=== PATIENT | female | born 1950 | race Caucasian/White ===

== ENCOUNTER 2019-10-15 06:01 | Inpatient (IN) | payer MEDICARE, SELFPAY ==
[2019-10-15] VITALS (16 sets, daily range): BP systolic 79–140; BP diastolic 44–80; PULSE 76–97; RESP 10–16; TEMP 35.8–37.3; O2SAT 92–97; BMI 30.9
--- NOTE | 2019-10-15 | DI.RAD.S_ITS ---
PROCEDURE: XR LUMBAR SPINE 2-3V INDICATIONS: TLIF L2-L5 TECHNIQUE: 4 views of the lumbar spine were acquired. COMPARISON: None. FINDINGS: There is discectomy and posterior fusion at L2-L5. IMPRESSION: Discectomy and posterior fusion at L2-L5. Dictated by: Peace Ferrera M.D. on 10/15/2019 at 16:27 Approved by: Peace Ferrera M.D. on 10/15/2019 at 16:29
--- NOTE | 2019-10-15 07:16 | SUR.PREOP ---
PAIN STIMULATOR - PT STATES SHE TURNED IT OFF THE AM.
--- NOTE | 2019-10-15 07:18 | PM.PREOP ---
Pre-operative Note Interval Note History & Physical reviewed/Exam performed by Physician: Yes Changes to H&P: No
[2019-10-15] MEDS: GABAPENTIN 300 MG CAPSULE PO ×2 (07:23→21:41)
[2019-10-15] MEDS: CELECOXIB 200 MG CAPSULE 400 MG PO ×2 (07:24→16:15)
[2019-10-15] MEDS: SCOPOLAMINE 1 PATCH TOP (07:25)
[2019-10-15] MEDS: ACETAMINOPHEN 325 MG TABLET 975 MG PO (07:25)
[2019-10-15] MEDS: LACTATED RINGERS 1,000 ML 42 ML IV ×3 (07:27→13:03)
[2019-10-15] MEDS: CEFAZOLIN 2 GM/100 ML FROZ.PIGGY IV ×3 (07:55→23:36)
--- NOTE | 2019-10-15 08:47 | SUR.OPER ---
Right lateral on padded OR table. Head on pillow, gel axillary roll, pillow to support left arm. Legs flexed, pillows between legs, gel pad under down leg and ankle. Multiple passes of 3 inch cloth tape across shoulder, hip, upper and lower legs to secure patient on OR table.
--- NOTE | 2019-10-15 08:48 | SUR.OPER ---
Prone on spine table, head in foam head support, padded chest and pelvic supports, gel pad at knees, lower legs supported by pillows; nipples, genitalia and toes free of pressure, arms secured on foam padded arm boards at <90 degrees abduction. Tape over blanket at thigh secured to table.
[2019-10-15] MEDS: VANCOMYCIN 1,000 MG VIAL 1000 MG TOP (08:55)
[2019-10-15] MEDS: THROMBIN (RECOMBINANT) 5,000 UNIT VIAL 5000 UNIT TOP (08:55)
[2019-10-15] MEDS: SODIUM CHLORIDE 0.9% 1,000 ML, GENTAMICIN 80 MG IRR (08:56)
[2019-10-15] MEDS: BUPIVACAINE 0.5% (PF) 4 ML, MORPHINE-PF 4 MG, BUTORPHANOL 1 MG, fentaNYL 100 MCG INJ (08:57)
--- NOTE | 2019-10-15 13:57 | PM.OP.1 ---
Operative Date/Time/Diagnoses Date of procedure: 10/15/19 Time of procedure: 13:58 Pre-op diagnosis: Lumbar stenosis with radiculopathy Lumbar spondylolisthesis History of lumbar fusion Post-op diagnosis: same Procedure & Clinicians Procedure: L2-3, L3-4 anterior fusion with cages L2-3, L3-4 posterior fusion L2, L3, L4 screws Removal of segmental lumbar screws at L4, L5, S1 Iliac crest bone graft aspirate L2-3 laminectomy L3-4 revision laminectomy Use of microscope Placement of epidural catheter Same procedure as scheduled: Yes Indications: [age] year old female with intractable pain from stenosis. They had failed conservative management and requested operative intervention. Risks and benefits of surgery were discussed and appropriate consents were obtained. Marketing Analytics Lead: Sharan Kimble Anesthesia Type: General Operative Notes Findings: None Closure Type: primary Specimen(s): none sent Prosthetic devices, grafts, tissues, transplants, or devices: NuVasive XLIF cages, MAS Reline screws Applied: catheter Estimated Blood Loss (mL): 250 Blood products transfused: none Procedure in detail: Patient was brought to the operating room and intubated on the table. Time-out was performed. They were then rolled over to the lateral decubitus position with the [id number]. The table was bent and they were taped down in the correct position. X-rays were taken to confirm a true AP and lateral. Preoperative antibiotics were given. The left flank was prepped and draped in standard sterile fashion. Using fluoroscopy, a 3 cm incision was made above the iliac crest. We bluntly dissected down with Metzenbaum scissors and split the 3 abdominal muscle layers. We dissected out the retroperitoneal space and using finger guidance, brought our 1st dilator down to the psoas muscle. Using neuromonitoring and fluoroscopy, we placed it through the psoas onto the L3-4 disc space in an anterior position and gradually pulled the dilator posteriorly along the disc space. We placed our guidewire and measured our depth for the retractor. We then dilated with the next 2 dilators and then placed our retractor over the dilators. Position was confirmed with fluoroscopy and the retractor was locked down to the bar. We opened up the retractor and checked with neuro monitoring. We then placed the braulio and again checked with neuro monitoring. The retractor was opened further and the ALL retractor was placed. An annulotomy was performed. We then performed a complete diskectomy with ring curette, pituitary, box osteotome. A Martinez was advanced across the disc space under fluoroscopy to release the lateral annulus on the opposite side. We then used sequentially larger trials and confirmed under fluoroscopy. This was tight to get into and I elected to use a titanium cage for extra structural support. The XLIF cage was packed with Osteocel bone graft and impacted into the L3-4 disc space with fluoroscopy for the anterior fusion at this level. The wound was irrigated. The retractor was closed down. The braulio was removed. We carefully removed the retractor with direct visualization to make sure there was no neurovascular or abdominal injury. We then went up to L2-3. Again we used dilators, placed a retractor, performed a complete diskectomy with lateral release, trialed and placed another cage with bone graft for the anterior fusion at L2-3. The retractors removed with direct visualization. Final x-rays were taken. The muscle fascia was closed, superficial tissue was closed. The skin was closed. Sterile dressing was placed. The patient was then rolled over on the well-padded prone position on the Mook table. Using fluoroscopy for localization, bilateral 12 cm incisions were made centered over her pedicles and previous lumbar screws. We used a Bovie to come down to and split the lumbodorsal fascia and then down to expose the screws bilaterally. The soft tissue was cleared off. We had to use a bur to remove a lot of bony overgrowth until everything was exposed. And the set screws were removed. We were unable to remove the crosslink by just lifting it. We had to dissect to the midline from both sides, release the screw and then separate the pieces before we could finally removed the crosslink. The rods were removed and then the screws removed. Due to the amount of bony overgrowth as well as the difficulty with the crosslink, this added approximately 1.5 hours to our surgery time. We placed a guidewire in the L4 screw hole on the left. We then used a Jamshidi needle to cannulate the pedicles of L2 and L3 on the left using neural monitoring and fluoroscopy. These were changed guidewires. We then tapped over the guidewires and placed NuVasive Reline MAS screws at these 3 levels. We upsized and used a 7.5 mm screw at L4 in the old hole. We then opened up our retractor blades and cleared off the soft tissue over the transverse processes and then medially over the facet and lamina. There was tremendous scar medially from her previous surgery in this had extensive dissection to try to isolate our clean laminar edge. Once this was done, we then brought in the microscope. A revision laminectomy was performed at L3-4 with a bur and Kerrison rongeurs. There was so much scar tissue coming up from the previous laminectomy at L4-5 that part of this must have been undermined. The dura was densely adherent to everything requiring extra dissection to meticulously remove separate the scar tissue from the dura and this took as much time and complexity as a revision laminectomy. We carefully depressed the dura to reach to the opposite side and decompress the entire central canal. We cleared out the neural foramen. In the end the ball probe could be placed cephalad and caudally across to the opposite side in the foramen and everything was opened. We then moved the retractor blades up to L2-3. Again we used a bur and Kerrisons to perform a laminectomy at L2-3. We carefully depressed the dura and reach the opposite side for the central decompression and then cleared out the neural foramen. The wound was copiously irrigated. The screw heads were placed and the danielle was placed and locked down. A small stab incision was made over the PSIS and a Jamshidi needle was placed into the iliac crest and several mL of bone marrow was aspirated. This was mixed with our locally harvested bone graft as well as the remaining Osteocel and placed in the posterolateral gutter for fusion at L2-3 and L3-4. An epidural catheter was primed with 4mL of 0.5% bupivacaine, 100 mcg fentanyl, 4 mg Duramorph, 1 mg Stadol. The dura was depressed under the cephalad lamina with a ball probe and the epidural catheter was gently advanced 6 cm cephalad. The fascia was then closed. The epidural was then injected without resistance. The catheter was pulled and we closed more over the fascia. We then went over to the right side. Again percutaneously placed Jamshidi needles down the right pedicles of L2 and L3 with fluoroscopy and neural monitoring. We switched used the guidewires and also placed a guidewire down her previous L4 screw hole. We tapped and then placed the appropriate screws with upsizing of the L4 screw. A danielle was placed and the set screws were locked down. Wound was irrigated. Final x-rays were taken. Vancomycin powder was placed in the wound. The superficial and skin were closed. Sterile dressing was placed. The patient was then rolled over, extubated, brought to the recovery room with no complications. Complications: none Post-operative Condition: stable Disposition: PACU Plan for aftercare: Inpatient. Up with PT.
[2019-10-15] MEDS: fentaNYL 100 MCG/2 ML INJ IV ×4 (14:50→15:05)
[2019-10-15] MEDS: VENLAFAXINE ER 75 MG CAP PO ×2 (16:15→21:41)
[2019-10-15] MEDS: LACTATED RINGERS 1,000 ML 125 ML IV (16:15)
[2019-10-15] MEDS: CELECOXIB 200 MG CAPSULE PO (21:41)
[2019-10-15] MEDS: SENNOSIDES 8.6 MG TABLET 17.2 MG PO (21:41)
[2019-10-15] MEDS: ATORVASTATIN 20 MG TABLET PO (21:41)
[2019-10-15] MEDS: NORTRIPTYLINE HCL 25 MG CAPSULE 100 MG PO (21:41)
[2019-10-15] MEDS: DOCUSATE 100 MG CAPSULE PO (21:41)
[2019-10-15] MEDS: OXYCODONE IR 5 MG TABLET PO (23:43)
[2019-10-16] MEDS: LACTATED RINGERS 1,000 ML 125 ML IV ×2 (01:25→09:03)
[2019-10-16 05:59] VITALS: BP 123/59; PULSE 83; RESP 16; TEMP 36.7; O2SAT 91
[2019-10-16 06:39] LABS: Hematocrit 28.6 % (36-46); Hemoglobin 9.7 g/dL (12.0-16.0)
--- NOTE | 2019-10-16 06:46 | PM.PNPO.1 ---
Subjective Subjective Date Patient Seen: 10/16/19 Time Patient Seen: 06:46 Interval history: she's doing well. pain 6/10, no leg pain Exam Vital Signs (past 8 hours): - 10/15/19 23:44 10/16/19 05:59 Temperature 97.5 F L 98.0 F Pulse Rate 86 83 Respiratory Rate 16 16 Blood Pressure 107/60 123/59 L Pulse Oximetry 93 91 Oxygen Delivery Method High Flow Nasal Cannula Oxygen Flow Rate 2 Const Orientation: alert and oriented x3 Back/Spine/Pelvis Other: mild dry drainage. 5/5 motor BLE Objective Labs Result Diagrams: 10/16/19 06:20 Labs: Laboratory Results - last 24 hr 10/16/19 06:20 Hgb 9.7 L Hct 28.6 L Assessment & Plan Post-op Postoperative Procedures: Procedures Operation Date: 10/15/19 07:45 Actual Procedures Side Surgeon p L23, L34 anterior & posterior (XLIF) instrumentated fusion w/ bone graft & laminectomies, removal old L4-S1 screws Edmund Kelsey MD She's doing well. Mobilize with PT Quality VTE Deep Vein Thrombosis/Pulmonary Embolism Present on Admission: No
[2019-10-16 07:36] VITALS: BP 100/57; PULSE 75; RESP 18; TEMP 36.9; O2SAT 92
[2019-10-16] MEDS: CELECOXIB 200 MG CAPSULE PO ×2 (07:47→20:56)
[2019-10-16] MEDS: VENLAFAXINE ER 75 MG CAP PO (07:48)
[2019-10-16] MEDS: DOCUSATE 100 MG CAPSULE PO ×2 (07:48→20:56)
[2019-10-16] MEDS: OXYCODONE IR 10 MG TABLET PO ×6 (07:49→23:49)
[2019-10-16] MEDS: ACETAMINOPHEN 325 MG TABLET 650 MG PO ×2 (07:49→15:03)
[2019-10-16] MEDS: LEVOTHYROXINE 150 MCG TABLET PO (07:49)
--- NOTE | 2019-10-16 10:22 | PT.IIE ---
Current Diagnoses Spondylolisthesis, lumbar region (10/15/19) Spinal stenosis, lumbar region with neurogenic claudication (10/15/19) Arthrodesis status (10/15/19) Surgery Performed Operation Date: 10/15/19 07:45 Actual Procedures p L23, L34 anterior & posterior (XLIF) instrumentated fusion w/ bone graft & laminectomies, removal old L4-S1 screws - Edmund Kelsey MD Surgical History (Last Updated 07/31/19 @ 10:29 by Laura Meyers RN) H/O: hysterectomy (Acute) History of arthroplasty of left knee (Acute) History of arthroplasty of right knee (Acute 06/12/16) History of arthroscopy of both knees (Acute) History of bladder suspension procedure (Acute) History of lumbar spinal fusion (Acute) History of surgery (Acute) Hx of hand surgery (Acute) Medical History (Last Updated 07/31/19 @ 10:29 by Laura Meyers RN) Anxiety (Acute) Depression (Acute) Hypothyroid (Acute) Physical Therapy Inpatient Evaluation/Re-Eval M1 PT/OT-IP Prior Functional Status Start: 10/16/19 12:42 Freq: NEEDED Status: Active Protocol: Document 10/16/19 10:22 AB (Rec: 10/16/19 12:58 AB [id number]) Medical Review Prior Functional Status Medical History Reviewed Yes Communication able to make needs known Mobility and Gait pt stated that she is independent with all mobilities and ambulation without AD but occasionally uses a SPC depending on stability/level of pain Social History Household Members spouse Living Arrangements House Number of Floors (Floors) Two Floors Number of Stairs To Enter/Railing? has 3 steps to enter with B rails pt will stay on main level of ehouse Home Environment Standard Height Toilet,Tub/ Shower Home Equipment Raised Toilet Seat w/Armrests, Shower Seat without Backrest, Hand Held Shower,Grab Bars Near Toilet,Grab Bars In Shower Additional Social History Comment stated that she has friends who will also be able to assist her when needed. stated that she has access to a 4WW and a FWW but does not have them at this time M2 PT-IP Current Condition Start: 10/16/19 12:42 Freq: NEEDED Status: Active Protocol: Document 10/16/19 10:22 AB (Rec: 10/16/19 12:58 AB [id number]) Physical Therapy Current Condition Current Condition Evaluation Date 10/16/19 Treatment Diagnosis L2-4 ant./post fusion/lami; difficulty in walking Onset Date 10/15/2019 Precautions Lumbar Precautions Log Roll,No Twisting,Limit Bending,Lifting Restriction of 10 lbs,Gait Belt above Incisional Area M3 PT-IP Subjective Start: 10/16/19 12:42 Freq: NEEDED Status: Active Protocol: Document 10/16/19 10:22 AB (Rec: 10/16/19 12:58 AB [id number]) Subjective Physical Therapy Visit Type Type Initial Evaluation Visit Start Time 10:22 Visit Stop Time 10:54 Total Visit Minutes 32 Number of COMMODITIES REQUIREMENTS ANALYST Visits 0 Physical Therapy Visit Comments Patient Comments pt agreeable to do PT Therapy Pain Assessment Pain When Pain Assessed At Rest Pain Present Pain Present Pain Reported Location Bilateral Back Intensity 5 Scale Used increases to 6/10 with mobility Pain Management Techniques Re-positioning,Timing of Activity with Medications M4 PT-IP Mobility and Gait Start: 10/16/19 12:42 Freq: NEEDED Status: Active Protocol: Document 10/16/19 10:22 AB (Rec: 10/16/19 12:58 [id number]) PT-Bed Mobility Assessment Rolling Type of Rolling Log Rolling Level of Assist Standby Assistance Supine to Sit Supine to Sit Standby Assistance Scooting Scooting to Edge of Bed Contact Guard Assistance PT-Transfer Assessment Sit to and From Stand Sit to and from Stand Minimal Assistance,1 Person Assistance,Use of Upper Extremities Equipment Transfer Assistive Device Gait Belt,Front Wheeled Walker Orthotic/Prosthetic Devices or Brace: No Transfers Transfer Destination Chair Transfer Technique ambulated using FWW Transfer Ability Level of Assist Minimal Assistance,1 Person Assistance,Use of Upper Extremities Comments Mobility Comments BP supine: 97/53 pt completed log roll supine to sit SBA and cues. pt was able to sit on EOB CGA. BP in sittin/ 57. completed sit to stand from the EOB min A and cues. ambulated ~ 12 ft using FWW. pt sat on chair. completed sit to stand from chair min A for repositioning. positioned pt on chair. BP: 110/57 Left pt with OT. Gait Assessment Gait Gait Assistance Required: Minimum Assistance,1 Person Assist Distance (Feet) 12 Able to Maintain Weight Bearing Status Yes During Gait Assistive Devices Assistive Device Gait Belt,Front Wheeled Walker Orthotic/Prosthetic Devices or Brace: No Gait Deviations General Gait Pattern Antalgic,Decreased Stride Length,Decreased Feet Clearance Factors Limiting Gait Function Factors Limiting Gait Function Decreased Activity Tolerance, Decreased Strength,Limited Range of Motion,Pain,Poor Balance Comments Gait Comments pls refer to mobility section for details PT-Balance Assessment Sitting Balance and Reactions Static Sitting Balance Ability Good Dynamic Sitting Balance Ability Good Standing Balance and Reactions Static Standing Balance Ability Fair Dynamic Standing Balance Ability Fair Device Used FWW M5 PT-IP Objective Assessments Start: 10/16/19 12:42 Freq: NEEDED Status: Active Protocol: Document 10/16/19 10:22 AB (Rec: 10/16/19 12:58 [id number]) Orientation Orientation/Cognition Level of Alertness Alert Orientation Name,Age,Place,Situation Language Function Ability No Deficits Noted Safety Awareness Understands Safety Issues Gross Range of Motion Lower Extremity ROM Assessment Within Functional Limits Strength Comments Strength Comments LLE: 4-/5 RLE: 3+/5 Coordination Assessment Gross Coordination Gross Coordination WNL Sensation Assessment Sensation Gross Sensation Right LE Impaired Light Touch Impaired Sensation Description Numbness,Tingling Comments Sensation Comments c/o R inner thigh to big toes numbness/tingling and decrease sensation Muscle Tone Muscle Tone WNL Yes M6 PT-IP Treatment Start: 10/16/19 12:42 Freq: NEEDED Status: Active Protocol: Document 10/16/19 10:22 AB (Rec: 10/16/19 12:58 [id number]) Physical Therapy Treatment Education Education Provided Precautions,Weight Bearing Status,Post-Op Packet,Safety M7 PT-IP Assessment and Plan Start: 10/16/19 12:42 Freq: NEEDED Status: Active Protocol: Document 10/16/19 10:22 AB (Rec: 10/16/19 12:58 [id number]) PT Summary Assessment and Plan Potential Rehabilitation Potential Good Status of Condition at Evaluation Stable Summary Impairments Pain,ROM,Strength,Balance, Coordination,Sensation,Tone, Cognition,Bed Mobility, Transfers,Gait,Activity Tolerance Assessment Summary pt requiring min A with mobility and plans to go home with spouse to assist her. pt has 3 steps to enter with B rails and stair climbing training needs to be completed prior to d/c. will conduct caregiver training when appropriate. Goals Bed Mobility Goal Independent Transfer Goal Independent,Front Wheeled Walker Gait Goal Independent,Front Wheel Walker Gait Distance 150 Other Goals up/down 3 steps using bilateral rails SBA Days to Meet Goals 3 Frequency of Treatment Frequency Of Treatment Twice a Day Treatment Plan Physical Therapy Treatment Plan Bed Mobility Training,Transfer Training,Gait Training, Therapeutic Exercise,Balance Retraining,Post Op Education, Discharge Planning,Hot or Cold Pack,Neuromuscular Re-ed, Coordination Retraining,Manual Therapy Other Recommendations and Next Treatment ambulation, stair climbing, Focus caregiver training Recommendations To Nursing Amount of Assist Needed 1 Person Assist Discharge Recommendations PT Discharge Recommendations Home with Assistance Equipment Needed for Home Before FWW Discharge
--- NOTE | 2019-10-16 11:22 | OT.IP.EVAL ---
Current Diagnoses Spondylolisthesis, lumbar region (10/15/19) Spinal stenosis, lumbar region with neurogenic claudication (10/15/19) Arthrodesis status (10/15/19) Surgery Performed Operation Date: 10/15/19 07:45 Actual Procedures p L23, L34 anterior & posterior (XLIF) instrumentated fusion w/ bone graft & laminectomies, removal old L4-S1 screws - Edmund Kelsey MD Past Medical History (Last Updated 07/31/19 @ 10:29 by Laura Meyers RN) Anxiety (Acute) Depression (Acute) Hypothyroid (Acute) Surgical History (Last Updated 07/31/19 @ 10:29 by Laura Meyers RN) H/O: hysterectomy (Acute) History of arthroplasty of left knee (Acute) History of arthroplasty of right knee (Acute 06/12/16) History of arthroscopy of both knees (Acute) History of bladder suspension procedure (Acute) History of lumbar spinal fusion (Acute) History of surgery (Acute) Hx of hand surgery (Acute) Occupational Therapy Inpatient Evaluation/Re-Eval M1 PT/OT-IP Prior Functional Status Start: 10/16/19 12:42 Freq: NEEDED Status: Active Protocol: Document 10/16/19 13:13 CGR (Rec: 10/16/19 13:32 CGR [id number]) Medical Review Prior Functional Status Medical History Reviewed Yes Communication able to make needs known Mobility and Gait pt stated that she is independent with all mobilities and ambulation without AD but occasionally uses a SPC depending on stability/level of pain Activities of Daily Living and IADL's Pt was IND in all ADLs Prior Functional Level (Other details) Pt states that her was recently discharged from the hospital after a 14 day admission and may not be able to assist much. Social History Household Members spouse Living Arrangements House Number of Floors (Floors) Two Floors Number of Stairs To Enter/Railing? has 3 steps to enter with B rails pt will stay on main level of the house Home Environment Standard Height Toilet,Tub/ Shower Home Equipment Raised Toilet Seat w/Armrests, Shower Seat without Backrest, Hand Held Shower,Grab Bars Near Toilet,Grab Bars In Shower Employment Status Retired Additional Social History Comment stated that she has friends who will also be able to assist her when needed. stated that she has access to a 4WW and a FWW but does not have them at this time. Pt is retired/on disability after having this fall at work with years of following back pain. M2 OT-IP Current Condition Start: 10/16/19 13:12 Freq: Status: Active Protocol: Document 10/16/19 13:13 CGR (Rec: 10/16/19 13:32 CGR [id number]) Occupational Therapy Current Condition Current Condition Evaluation Date 10/16/19 Treatment Diagnosis L2-4 XLIF, bone graft, and lami Diagnosis Onset Date 10/15/19 Post Operative Precautions Lumbar Precautions Log Roll,No Twisting,Limit Bending,Lifting Restriction of 10 lbs,Gait Belt above Incisional Area M3 OT- IP Subjective and Pain Start: 10/16/19 13:12 Freq: Status: Active Protocol: Document 10/16/19 13:13 CGR (Rec: 10/16/19 13:32 CGR [id number]) OT- Subjective Occupational Therapy Visit Type Type Initial Evaluation Visit Start Time 10:38 Visit Stop Time 11:22 Total Visit Minutes 44 Notes Partial co-treat with P.T. OT Pain Assessment Pain When Pain Assessed At Rest Pain Present Pain Present Pain Reported Location Bilateral Back Intensity 5 Scale Used Numeric (1 - 10) Management Techniques Modification of Treatment, Timing of Activity with Medications M4 OT- IP ADL's Start: 10/16/19 13:12 Freq: Status: Active Protocol: Document 10/16/19 13:13 CGR (Rec: 10/16/19 13:32 CGR [id number]) OT [id number] Comments OT Self-Feeding Comments Not meal time OT ADL-Grooming General Evaluation Grooming Ability Standby Assistance Areas Needing Assistance Combing/Brushing Hair,Face Washing Comments OT Grooming Comments seated in chair OT ADL-Oral Care General Eval Oral Care Ability Standby Assistance Areas of Assistance Brushing Teeth Comments Oral Care Comments seated in chair OT ADL-Dressing General Eval Lower Body Dressing Ability Contact Guard Assistance Areas Needing Assistance Retrieving/Set-up of Clothing, Socks Assistive Devices Dressing Assistive Devices Radio Interference Expert,Sock Aid Comments OT Dressing Comments Pt educated on use of hip kit for LB dressing with socks, underwear and pants. Pt practices sucessfully and was provided a hip kit minus the roller billet mill as she states she has a roller billet mill at home. OT ADL-Toileting Comments OT Toileting Comments Not performed, pt with barr and declined other needs of the toilet. OT ADL-Bathing Comments OT Bathing Comments not performed in this session. M5 OT- IP IADL's Start: 10/16/19 13:12 Freq: Status: Active Protocol: Document 10/16/19 13:13 CGR (Rec: 10/16/19 13:32 CGR [id number]) OT-Instrumental Activities of Daily Living Deficits IADL Deficits Identified No Deficits Home Safety Awareness Awareness of Need for Assistance at Home Good Awareness Ability to Problem Solve Emergency Able to Problem Solve Situations Medication Management Medication Management No Deficits Identified Money Management Money Management No Deficits Identified Meal Preparation Meal Preparation No Deficits Identified French Instructor French Instructor No Deficits Identified M6 OT- IP Functional Cognition Start: 10/16/19 13:12 Freq: Status: Active Protocol: Document 10/16/19 13:13 CGR (Rec: 10/16/19 13:32 CGR [id number]) Cognitive Factors Limiting Selfcare Function Cognitive Ability Level of Alertness Alert Patient Orientation Name,Age,Birthday,Month,Date, Year,Day of Week,Place, Situation Attention Span Ability Capable of Focused Attention, Capable of Sustained Attention Ability to Follow Commands Able to Follow Multi-Step Commands Memory Description No Deficits Noted Safety Awareness No Deficits Noted Problem Solving Ability No deficits Noted OT- Vision and Hearing OT- Hearing Assessment OT- Hearing Assessment WFL OT- Vision Assessment Visual Acuity WFL Visual Attentiveness WFL Occular Pursuits WFL Visual Convergence WFL Visual [place] WFL Diplopia Absent M7 OT- IP Mobility and Balance Start: 10/16/19 13:12 Freq: Status: Active Protocol: Document 10/16/19 13:13 CGR (Rec: 10/16/19 13:32 CGR [id number]) OT- Bed Mobility Assessment Rolling Type of Rolling Roll to Right Level of Assistance Standby Assistance Supine to Sit Supine to Sit Assist Standby Assistance Scooting Scooting to Edge of Bed Standby Assistance OT-Transfer Assessment Sit to and From Stand Sit to and from Stand Minimal Assistance Transfers Transfer Ability Minimal Assistance Technique Transfer Destination Bed,Chair Transfer Technique Stand Step Pivot Devices Transfer Assistive Devices Gait Belt,Front Wheeled Walker OT- Gait Assessment Gait Gait Assistance Required: Minimum Assistance Assistive Devices Assistive Device Gait Belt,Front Wheeled Walker Comments Gait Ability Comments Pt ambulated around the bed to the chair. OT- Balance Assessment Sitting Balance and Reactions Static Sitting Balance Ability Good Dynamic Sitting Balance Ability Fair M8 OT- IP Objective Assessments Start: 10/16/19 13:12 Freq: Status: Active Protocol: Document 10/16/19 13:13 CGR (Rec: 10/16/19 13:32 CGR [id number]) OT Gross Range of Motion Upper Extremity Range of Motion Assessment Within Functional Limits OT Strength Upper Extremity Strength Assessment Within Functional Limits OT- Coordination Assessment Upper Extremity Finger to Nose Test Within Functional Limits Finger Tapping Test Within Functional Limits OT-Muscle Tone Assessment Muscle Tone WNL Yes OT Sensation Assessment Edema Edema Absent M9 OT- IP Assessment and Plan Start: 10/16/19 13:12 Freq: Status: Active Protocol: Document 10/16/19 13:13 CGR (Rec: 10/16/19 13:32 CGR [id number]) OT Summary Assessment and Plan Potential Rehabilitation Potential Excellent Analytic Complexity at Evaluation Low Summary OT Impairments Pain,Functional Mobility, Dressing,Toileting,Bathing, Toilet Transfers,Shower Transfers Progress Towards Goals Progressing Toward Goals Assessment Summary Pt presents as a low complexity evaluation s/p lumbar sx. Pt is doing well but will benefit from continued OT services. Recommend d/c home with family and friend support. Pt is likely to be MOD I prior to discharge. Pt will need a walker for home use. Goals Grooming Goal Independent Dressing Goal Independent,Radio Interference Expert,Sock Aid Toileting Goal Independent Bathing Goal Independent Toilet Transfer Goal Independent Shower Transfer Goal Independent Days to Meet Goals 5 Frequency of Treatment Frequency Of Treatment Once a Day Treatment Plan OT Treatment Plan ADL Training,Functional Mobility,Patient/Family Education,Discharge Planning Other Treatment Recommendations and Next Shower and practice LB Treatment Focus dressing. Discharge Recommendations OT Discharge Recommendations Home Home Equipment Needs walker
[2019-10-16 11:54] VITALS: BP 106/57; PULSE 74; RESP 18; TEMP 36.6; O2SAT 96
--- NOTE | 2019-10-16 15:31 | CM.DANOTE ---
Addendum entered by Marija Murillo LPN 10/16/19 15:45: Met with pt as planned. Introduced self and role. Pt's spouse and a friend who can check on her are also in room. Pt confirms that her is not well enough for other than supportive assist. She is hopeful that she can be here until Saturday so that she is stable enough to manage at home. She is aware that this will be at the discretion of the orthopedic team and she plans to discuss this with the rounding provider tomorrow. She does have a brother who can check on her also if need be. Pt confirms she will need a FWW at d/c and if the option is available to get it here and have it billed to her insurance she would like that. P: home when stable for same. DCP team will be following. Original Note: Discharge Planning/Care Management DCP: assessment: case received, EMR reviewed. Discussed in Team Rounds. Pt is a 68 year old female who admitted here yesterday for a planned spinal surgery: surgeon: Dr. Kelsey. Payer [facility] Admission status: INPT: per [facility] TANYA Juarez. OT and PT saw pt for first time today and thus far are recommending home with assistance and need for a FWW. P: meet with pt to continue this assessment process. It is noted in the documenation that pt's spouse had a recent hospitalization and thus his support will be limited. CM Discharge Assessment Start: 10/16/19 15:30 Freq: Status: Active Protocol: Document 10/16/19 15:30 ITV (Rec: 10/16/19 15:31 ITV [id number]) Discharge Planning Assessment Advance Directives? Yes: Living Will History Provided By Patient,Medical Record Prior Living Arrangements House Household Members spouse Is patient alert and oriented? Yes Whiteboard Updated in Patient Room with Yes name and ext. # of Cnc Machine Programmer Review Status In Process
[2019-10-16 15:40] VITALS: BP 101/55; PULSE 86; RESP 18; TEMP 36.6; O2SAT 92
--- NOTE | 2019-10-16 15:48 | PT.IPTN ---
Current Diagnoses Spondylolisthesis, lumbar region (10/15/19) Spinal stenosis, lumbar region with neurogenic claudication (10/15/19) Arthrodesis status (10/15/19) Surgery Performed Operation Date: 10/15/19 07:45 Actual Procedures p L23, L34 anterior & posterior (XLIF) instrumentated fusion w/ bone graft & laminectomies, removal old L4-S1 screws - Edmund Kelsey MD Physical Therapy Treatment Note M2 PT-IP Current Condition Start: 10/16/19 12:42 Freq: NEEDED Status: Active Protocol: Document 10/16/19 10:22 AB (Rec: 10/16/19 12:58 AB [id number]) Physical Therapy Current Condition Current Condition Evaluation Date 10/16/19 Treatment Diagnosis L2-4 ant./post fusion/lami; difficulty in walking Onset Date 10/15/2019 Precautions Lumbar Precautions Log Roll,No Twisting,Limit Bending,Lifting Restriction of 10 lbs,Gait Belt above Incisional Area M3 PT-IP Subjective Start: 10/16/19 12:42 Freq: NEEDED Status: Active Protocol: Document 10/16/19 15:48 AB (Rec: 10/16/19 17:09 AB [id number]) Subjective Physical Therapy Visit Type Type Treatment Note Visit Start Time 15:48 Visit Stop Time 16:09 Total Visit Minutes 21 Number of OPTOMECHANICAL TECHNICIAN Visits 0 Physical Therapy Visit Comments Patient Comments pt agreeable to do PT Therapy Pain Assessment Pain When Pain Assessed At Rest Pain Present Pain Present Pain Reported Location Bilateral Back Intensity 7 Scale Used Numeric (1 - 10) Pain Management Techniques Apply Cold,Re-positioning, Timing of Activity with Medications M4 PT-IP Mobility and Gait Start: 10/16/19 12:42 Freq: NEEDED Status: Active Protocol: Document 10/16/19 15:48 AB (Rec: 10/16/19 17:09 AB [id number]) PT-Bed Mobility Assessment Rolling Type of Rolling Log Rolling Supine to Sit Supine to Sit Standby Assistance Scooting Scooting to Edge of Bed Standby Assistance PT-Transfer Assessment Sit to and From Stand Sit to and from Stand Contact Guard Assistance,1 Person Assistance,Use of Upper Extremities Equipment Transfer Assistive Device Gait Belt,Front Wheeled Walker Orthotic/Prosthetic Devices or Brace: No Transfers Transfer Destination Chair Transfer Technique ambulation using FWW Transfer Ability Level of Assist Contact Guard Assistance Comments Mobility Comments pt completed supine to sit log roll SBA. BP in sitting 108/ 73. completed sit to stand CGA and ambulated in hallway using FWW ~ 75 ft. pt ambulated to the chair and positioned on the chair. call light and table placed within reach. Gait Assessment Gait Gait Assistance Required: Contact Guard Assist Distance (Feet) 75 Able to Maintain Weight Bearing Status Yes During Gait Assistive Devices Assistive Device Gait Belt,Front Wheeled Walker Orthotic/Prosthetic Devices or Brace: No Gait Deviations General Gait Pattern Antalgic,Decreased Stride Length,Decreased Feet Clearance Factors Limiting Gait Function Factors Limiting Gait Function Decreased Activity Tolerance, Decreased Strength,Limited Range of Motion,Pain,Poor Balance M5 PT-IP Objective Assessments Start: 10/16/19 12:42 Freq: NEEDED Status: Active Protocol: Document 10/16/19 10:22 AB (Rec: 10/16/19 12:58 [id number]) Orientation Orientation/Cognition Level of Alertness Alert Orientation Name,Age,Place,Situation Language Function Ability No Deficits Noted Safety Awareness Understands Safety Issues Gross Range of Motion Lower Extremity ROM Assessment Within Functional Limits Strength Comments Strength Comments LLE: 4-/5 RLE: 3+/5 Coordination Assessment Gross Coordination Gross Coordination WNL Sensation Assessment Sensation Gross Sensation Right LE Impaired Light Touch Impaired Sensation Description Numbness,Tingling Comments Sensation Comments c/o R inner thigh to big toes numbness/tingling and decrease sensation Muscle Tone Muscle Tone WNL Yes M6 PT-IP Treatment Start: 10/16/19 12:42 Freq: NEEDED Status: Active Protocol: Document 10/16/19 10:22 AB (Rec: 10/16/19 12:58 AB [id number]) Physical Therapy Treatment Education Education Provided Precautions,Weight Bearing Status,Post-Op Packet,Safety M7 PT-IP Assessment and Plan Start: 10/16/19 12:42 Freq: NEEDED Status: Active Protocol: Document 10/16/19 15:48 AB (Rec: 10/16/19 17:09 AB [id number]) PT Summary Assessment and Plan Potential Rehabilitation Potential Good Summary Impairments Pain,ROM,Strength,Balance, Coordination,Sensation,Bed Mobility,Transfers,Gait, Activity Tolerance Progress Towards Goals Progressing Toward Goals Assessment Summary pt progressing with mobility. pt plans to go home with spouse to assist. spouse stated that he knows how to assist pt since she had previous back surgeries. will conduct caregiver training when appropriate. stair climbing training will be completed prior to d/c. Goals Bed Mobility Goal Independent Transfer Goal Independent,Front Wheeled Walker Gait Goal Independent,Front Wheel Walker Gait Distance 150 Other Goals up/down 3 steps using bilateral rails SBA Days to Meet Goals 3 Frequency of Treatment Frequency Of Treatment Twice a Day Treatment Plan Physical Therapy Treatment Plan Bed Mobility Training,Transfer Training,Gait Training, Therapeutic Exercise,Balance Retraining,Post Op Education, Discharge Planning,Hot or Cold Pack,Neuromuscular Re-ed, Coordination Retraining,Manual Therapy Other Recommendations and Next Treatment ambulation, stair climbing, Focus caregiver training Recommendations To Nursing Amount of Assist Needed 1 Person Assist Discharge Recommendations PT Discharge Recommendations Home with Assistance Equipment Needed for Home Before FWW Discharge
--- NOTE | 2019-10-16 16:38 | PC.NURSE ---
PATIENT IS MOVING VERY WELL SBA BACK TO BED.
[2019-10-16] MEDS: SENNOSIDES 8.6 MG TABLET 17.2 MG PO (20:56)
[2019-10-16] MEDS: ATORVASTATIN 20 MG TABLET PO (20:56)
[2019-10-16] MEDS: GABAPENTIN 300 MG CAPSULE PO (20:56)
[2019-10-16] MEDS: NORTRIPTYLINE HCL 25 MG CAPSULE 100 MG PO (20:58)
[2019-10-16] MEDS: VENLAFAXINE ER 75 MG CAP 150 MG PO (21:20)
[2019-10-17] VITALS (7 sets, daily range): BP systolic 100–124; BP diastolic 42–63; PULSE 75–91; RESP 14–17; TEMP 36.4–37.2; O2SAT 92–99
--- NOTE | 2019-10-17 01:21 | PC.NURSE ---
Addendum entered by Nithya Matamoros R.N. 10/17/19 06:57: Total output for slide fasteners inspector=3,450mL urine Total intake for slide fasteners inspector=300mL Original Note: Spoke to Dr. Michele cuevas about concern of patients high urine output. We checked her fingerstick which was 120; Pt reports feeling pretty thirsty. She says she has not been on any IVF since early in the morning on 10/16/19. She reports having drank about 2,400mL of water since about 1400 on 10/16 until NOC Shift at 2300, although this isn't accurately reflected in her I&Os charting. According to charting it appears shes put out close to 7,000mL in the last 12 hours and only had about 2,400mL in. Per Dr. Bautista we will not remove the barr in the morning yet to obtain accurate I&Os, we will order CBC, BMP, Hemoglobin A1C, and maintain strict I&Os.
[2019-10-17] MEDS: OXYCODONE IR 10 MG TABLET PO ×4 (03:29→20:24)
[2019-10-17 05:57] LABS: Add Manual Diff / Slide Review NO; Basophils Absolute Auto 0 /uL (0-100); Basophils Percent Auto 0.6 % (0-2); Eosinophils Absolute Auto 200 /uL (0-450); Hemoglobin 8.9 g/dL (12.0-16.0); Lymphocytes Absolute Auto 2300 /uL (1100-4500); Lymphocytes Percent Auto 29.5 % (25-40); Mean Corpuscular HGB Conc 34.3 % (30-36); Mean Corpuscular Hemoglobin 30.8 PG (26-34); Mean Corpuscular Volume 89.9 fL (80-100); Monocytes Absolute Auto 800 /uL (0-900); Monocytes Percent Auto 9.9 % (3-14); Neutrophils Absolute Auto 4600 /uL (1500-7000); Platelet Count 198 X10^3/uL (150-400); Red Blood Cell Count 2.89 X10^6/uL (4.0-5.2); White Blood Cell Count 7.9 X10^3/uL (4.5-11.0)
[2019-10-17 06:11] LABS: Blood Urea Nitrogen 14 mg/dL (7-17); Calcium 8.6 mg/dL (8.4-10.2); Carbon Dioxide 27 mmol/L (22-32); Chloride 108 mmol/L (98-107); Estimated Glomerular Filt Rate > 60.0 mL/min (>60); Glucose 111 mg/dL (80-110); HEMOLYSIS < 15 (0-50); Potassium 4.1 mmol/L (3.4-5.1); Sodium 139 mmol/L (137-145)
[2019-10-17 06:13] LABS: Hemoglobin A1C% w Est Avg Glu 5.8 % (4.0-6.0)
--- NOTE | 2019-10-17 08:29 | PM.PNPO.1 ---
Subjective Subjective Date Patient Seen: 10/17/19 Time Patient Seen: 08:29 Interval history: She is doing well. Pain about 5/10 while on pain medication. Some burning in the left thigh and a little weakness in the left thigh. Still not independent with ambulation and requiring 1 person assist. Exam Vital Signs (past 8 hours): - 10/17/19 06:15 Temperature 98.1 F Pulse Rate 91 H Respiratory Rate 16 Blood Pressure 109/56 L Pulse Oximetry 92 Oxygen Delivery Method Nasal Cannula Oxygen Flow Rate 0 Const Orientation: alert and oriented x3 Other: Urine output 5 L yesterday and 3.5 L already today. Back/Spine/Pelvis Other: Mild to moderate drainage. 5/5 motor both lower extremities except for 5-/5 left hip flexor Objective Labs Result Diagrams: 10/17/19 05:38 10/17/19 05:38 Labs: Laboratory Results - last 24 hr 10/17/19 10/17/19 10/17/19 05:38 05:38 05:38 WBC 7.9 RBC 2.89 L Hgb 8.9 L Hct 26.0 L MCV 89.9 MCH 30.8 MCHC 34.3 RDW 13.0 Plt Count 198 Neut % (Auto) 58.0 Lymph % (Auto) 29.5 [place] % (Auto) 9.9 Eos % (Auto) 2.0 Baso % (Auto) 0.6 Neut # (Auto) 4600 Lymph # (Auto) 2300 [place] # (Auto) 800 Eos # (Auto) 200 Baso # (Auto) 0 Sodium 139 Potassium 4.1 Chloride 108 H Carbon Dioxide 27 BUN 14 Creatinine 0.70 Estimated GFR > 60.0 BUN/Creatinine Ratio 20.0 Glucose 111 H Hemoglobin A1c 5.8 Calcium 8.6 Assessment & Plan Post-op Postoperative Procedures: Procedures Operation Date: 10/15/19 07:45 Actual Procedures Side Surgeon p L23, L34 anterior & posterior (XLIF) instrumentated fusion w/ bone graft & laminectomies, removal old L4-S1 screws Edmund Kelsey MD She is mobilizing as expected after her spinal surgery. Anticipate discharge home tomorrow. She has had a massive urine output over the past 2 days. Normal glucose as well as normal sodium so no significant concern for diabetes or SIADH. Will continue to monitor her urine output. I will recheck her chemistry again tomorrow. For now she is having good oral intake and we'll just monitor to make sure that she does not get dehydrated. I do want to keep the Flores in for strict I/O monitoring. Quality VTE Deep Vein Thrombosis/Pulmonary Embolism Present on Admission: No
[2019-10-17] MEDS: CELECOXIB 200 MG CAPSULE PO ×2 (08:42→20:25)
[2019-10-17] MEDS: LEVOTHYROXINE 150 MCG TABLET PO (08:42)
[2019-10-17] MEDS: VENLAFAXINE ER 75 MG CAP PO (08:43)
[2019-10-17] MEDS: DOCUSATE 100 MG CAPSULE PO ×2 (08:43→20:51)
[2019-10-17] MEDS: ACETAMINOPHEN 325 MG TABLET 650 MG PO ×2 (08:44→15:56)
--- NOTE | 2019-10-17 10:30 | PT.IPTN ---
Current Diagnoses Spondylolisthesis, lumbar region (10/15/19) Spinal stenosis, lumbar region with neurogenic claudication (10/15/19) Arthrodesis status (10/15/19) Surgery Performed Operation Date: 10/15/19 07:45 Actual Procedures p L23, L34 anterior & posterior (XLIF) instrumentated fusion w/ bone graft & laminectomies, removal old L4-S1 screws - Edmund Kelsey MD Physical Therapy Treatment Note M2 PT-IP Current Condition Start: 10/16/19 12:42 Freq: NEEDED Status: Active Protocol: Document 10/16/19 10:22 AB (Rec: 10/16/19 12:58 AB [id number]) Physical Therapy Current Condition Current Condition Evaluation Date 10/16/19 Treatment Diagnosis L2-4 ant./post fusion/lami; difficulty in walking Onset Date 10/15/2019 Precautions Lumbar Precautions Log Roll,No Twisting,Limit Bending,Lifting Restriction of 10 lbs,Gait Belt above Incisional Area M3 PT-IP Subjective Start: 10/16/19 12:42 Freq: NEEDED Status: Active Protocol: Document 10/17/19 09:51 LJ (Rec: 10/17/19 10:30 LJ [id number]) Subjective Physical Therapy Visit Type Type Treatment Note Visit Start Time 09:51 Visit Stop Time 10:18 Total Visit Minutes 27 Number of OUTSOLE CASER Visits 1 Physical Therapy Visit Comments Patient Comments pt agreeable to do PT Therapy Pain Assessment Pain When Pain Assessed At Rest Pain Present Pain Present Pain Reported M4 PT-IP Mobility and Gait Start: 10/16/19 12:42 Freq: NEEDED Status: Active Protocol: Document 10/17/19 09:51 MOSES (Rec: 10/17/19 10:30 LJ [id number]) PT-Transfer Assessment Sit to and From Stand Sit to and from Stand Contact Guard Assistance,1 Person Assistance,Use of Upper Extremities Equipment Transfer Assistive Device Gait Belt,Front Wheeled Walker Transfers Transfer Destination Chair Transfer Technique ambulation using FWW Transfer Ability Level of Assist Contact Guard Assistance Comments Mobility Comments Pt in chair. Able to scoot forward SBA. Sit<>stand CGA and verbal cues. Call light and table within reach. Ice on surgical site Gait Assessment Gait Gait Assistance Required: Contact Guard Assist Distance (Feet) 100 Able to Maintain Weight Bearing Status Yes During Gait Assistive Devices Assistive Device Gait Belt,Front Wheeled Walker Orthotic/Prosthetic Devices or Brace: No Gait Deviations General Gait Pattern Antalgic,Decreased Stride Length,Decreased Feet Clearance Factors Limiting Gait Function Factors Limiting Gait Function Decreased Activity Tolerance, Decreased Strength,Limited Range of Motion,Pain,Poor Balance Comments Gait Comments Pt CGA for ambulation in hallway. Pt moves slowly but appropriately demonstrating precautions. Stair Climbing Assessment Evaluation Level of Assist On Stairs Contact Guard Assistance,1 Person Assistance Devices Stair Climbing Assistive Devices Left Railing,Right Railing Technique/Endurance Stair Climbing Direction Ascend and Descend Stair Climbing Technique Step to Step Number of Steps Climbed 3 Stair Climbing Set # Repetitions (reps) 2 Comments Stair Climbing Comments Pt CGA during stair climbing. Moves slowly and appropriatly M5 PT-IP Objective Assessments Start: 10/16/19 12:42 Freq: NEEDED Status: Active Protocol: Document 10/16/19 10:22 AB (Rec: 10/16/19 12:58 AB [id number]) Orientation Orientation/Cognition Level of Alertness Alert Orientation Name,Age,Place,Situation Language Function Ability No Deficits Noted Safety Awareness Understands Safety Issues Gross Range of Motion Lower Extremity ROM Assessment Within Functional Limits Strength Comments Strength Comments LLE: 4-/5 RLE: 3+/5 Coordination Assessment Gross Coordination Gross Coordination WNL Sensation Assessment Sensation Gross Sensation Right LE Impaired Light Touch Impaired Sensation Description Numbness,Tingling Comments Sensation Comments c/o R inner thigh to big toes numbness/tingling and decrease sensation Muscle Tone Muscle Tone WNL Yes M6 PT-IP Treatment Start: 10/16/19 12:42 Freq: NEEDED Status: Active Protocol: Document 10/17/19 09:51 MOSES (Rec: 10/17/19 10:30 [id number]) Physical Therapy Treatment Education Education Provided Precautions,Weight Bearing Status,Safety Other Treatments Other Treatment Performed educated pt on use of glute and core muscles to assist with mobility M7 PT-IP Assessment and Plan Start: 10/16/19 12:42 Freq: NEEDED Status: Active Protocol: Document 10/17/19 09:51 MOSES (Rec: 10/17/19 10:30 [id number]) PT Summary Assessment and Plan Potential Rehabilitation Potential Good Summary Impairments Pain,ROM,Strength,Balance, Coordination,Sensation,Bed Mobility,Transfers,Gait, Activity Tolerance Progress Towards Goals Progressing Toward Goals Assessment Summary Pt improving with mobility and gait tolerance. Demonstrated proper ambulation mechanics as well as understands and utilizes precautions. Next treatment focus on increasing gait distance. Goals Bed Mobility Goal Independent Transfer Goal Independent,Front Wheeled Walker Gait Goal Independent,Front Wheel Walker Gait Distance 150 Other Goals up/down 3 steps using bilateral rails SBA MET Frequency of Treatment Frequency Of Treatment Twice a Day Treatment Plan Physical Therapy Treatment Plan Bed Mobility Training,Transfer Training,Gait Training, Therapeutic Exercise,Balance Retraining,Post Op Education, Discharge Planning,Hot or Cold Pack,Neuromuscular Re-ed, Coordination Retraining,Manual Therapy Recommendations To Nursing Amount of Assist Needed 1 Person Assist
--- NOTE | 2019-10-17 14:21 | PT.IPTN ---
Current Diagnoses Spondylolisthesis, lumbar region (10/15/19) Spinal stenosis, lumbar region with neurogenic claudication (10/15/19) Arthrodesis status (10/15/19) Surgery Performed Operation Date: 10/15/19 07:45 Actual Procedures p L23, L34 anterior & posterior (XLIF) instrumentated fusion w/ bone graft & laminectomies, removal old L4-S1 screws - Edmund Kelsey MD Physical Therapy Treatment Note M2 PT-IP Current Condition Start: 10/16/19 12:42 Freq: NEEDED Status: Active Protocol: Document 10/16/19 10:22 AB (Rec: 10/16/19 12:58 AB [id number]) Physical Therapy Current Condition Current Condition Evaluation Date 10/16/19 Treatment Diagnosis L2-4 ant./post fusion/lami; difficulty in walking Onset Date 10/15/2019 Precautions Lumbar Precautions Log Roll,No Twisting,Limit Bending,Lifting Restriction of 10 lbs,Gait Belt above Incisional Area M3 PT-IP Subjective Start: 10/16/19 12:42 Freq: NEEDED Status: Active Protocol: Document 10/17/19 13:59 LJ (Rec: 10/17/19 14:21 LJ [id number]) Subjective Physical Therapy Visit Type Type Treatment Note Visit Start Time 13:59 Visit Stop Time 14:11 Total Visit Minutes 12 Notes Pt being moved to another room . Physical Therapy Visit Comments Patient Comments Pt agreeable to walk to her new room. Therapy Pain Assessment Pain When Pain Assessed During Mobility Pain Present Pain Present Pain Reported Location Bilateral Back Intensity 6 Scale Used Numeric (1 - 10) Pain Management Techniques Apply Cold,Re-positioning, Timing of Activity with Medications M4 PT-IP Mobility and Gait Start: 10/16/19 12:42 Freq: NEEDED Status: Active Protocol: Document 10/17/19 13:59 LJ (Rec: 10/17/19 14:21 LJ [id number]) PT-Bed Mobility Assessment Rolling Type of Rolling Roll to Right Level of Assist Standby Assistance Supine to Sit Supine to Sit Standby Assistance,Head of Bed Elevated Scooting Scooting to Edge of Bed Standby Assistance PT-Transfer Assessment Sit to and From Stand Sit to and from Stand Standby Assistance,Use of Upper Extremities Equipment Transfer Assistive Device Gait Belt,Front Wheeled Walker Transfers Transfer Destination Bed,Chair Transfer Technique ambulation using FWW Transfer Ability Level of Assist Standby Assistance,Use of Upper Extremities Comments Mobility Comments Pt in bed. Nursing entered room stating pt is being relocated to another room. Pt performed all bed mobility and transfer SBA Gait Assessment Gait Gait Assistance Required: Standby Assistance Distance (Feet) 150 Able to Maintain Weight Bearing Status Yes During Gait Assistive Devices Assistive Device Gait Belt,Front Wheeled Walker Orthotic/Prosthetic Devices or Brace: No Gait Deviations General Gait Pattern Antalgic,Decreased Stride Length,Decreased Feet Clearance Factors Limiting Gait Function Factors Limiting Gait Function Decreased Activity Tolerance, Decreased Strength,Limited Range of Motion,Pain,Poor Balance Comments Gait Comments Pt CGA-SBA for ambulation in hallway this session. Gait speed increased somewhat and pt has good control of FWW and appropriate posture M5 PT-IP Objective Assessments Start: 10/16/19 12:42 Freq: NEEDED Status: Active Protocol: Document 10/16/19 10:22 AB (Rec: 10/16/19 12:58 AB [id number]) Orientation Orientation/Cognition Level of Alertness Alert Orientation Name,Age,Place,Situation Language Function Ability No Deficits Noted Safety Awareness Understands Safety Issues Gross Range of Motion Lower Extremity ROM Assessment Within Functional Limits Strength Comments Strength Comments LLE: 4-/5 RLE: 3+/5 Coordination Assessment Gross Coordination Gross Coordination WNL Sensation Assessment Sensation Gross Sensation Right LE Impaired Light Touch Impaired Sensation Description Numbness,Tingling Comments Sensation Comments c/o R inner thigh to big toes numbness/tingling and decrease sensation Muscle Tone Muscle Tone WNL Yes M6 PT-IP Treatment Start: 10/16/19 12:42 Freq: NEEDED Status: Active Protocol: Document 10/17/19 09:51 LJ (Rec: 10/17/19 10:30 [id number]) Physical Therapy Treatment Education Education Provided Precautions,Weight Bearing Status,Safety Other Treatments Other Treatment Performed educated pt on use of glute and core muscles to assist with mobility M7 PT-IP Assessment and Plan Start: 10/16/19 12:42 Freq: NEEDED Status: Active Protocol: Document 10/17/19 13:59 LJ (Rec: 10/17/19 14:21 LJ [id number]) PT Summary Assessment and Plan Potential Rehabilitation Potential Good Summary Impairments Pain,ROM,Strength,Balance, Coordination,Sensation,Bed Mobility,Transfers,Gait, Activity Tolerance Progress Towards Goals Progressing Toward Goals Assessment Summary Pt tolerated increased distance in gait. Performed SBA transfers from bed to chair to bed. Goals Bed Mobility Goal Independent Transfer Goal Independent,Front Wheeled Walker Gait Goal Independent,Front Wheel Walker Gait Distance 150 Other Goals up/down 3 steps using bilateral rails SBA MET Frequency of Treatment Frequency Of Treatment Twice a Day Treatment Plan Physical Therapy Treatment Plan Bed Mobility Training,Transfer Training,Gait Training, Therapeutic Exercise,Balance Retraining,Post Op Education, Discharge Planning,Hot or Cold Pack,Neuromuscular Re-ed, Coordination Retraining,Manual Therapy Recommendations To Nursing Amount of Assist Needed 1 Person Assist Discharge Recommendations PT Discharge Recommendations Home with Assistance
--- NOTE | 2019-10-17 15:46 | OT.IP.TRT ---
Current Diagnoses Spondylolisthesis, lumbar region (10/15/19) Spinal stenosis, lumbar region with neurogenic claudication (10/15/19) Arthrodesis status (10/15/19) Surgery Performed Operation Date: 10/15/19 07:45 Actual Procedures p L23, L34 anterior & posterior (XLIF) instrumentated fusion w/ bone graft & laminectomies, removal old L4-S1 screws - Edmund Kelsey MD Occupational Therapy Treatment Note M2 OT-IP Current Condition Start: 10/16/19 13:12 Freq: Status: Active Protocol: Document 10/16/19 13:13 CGR (Rec: 10/16/19 13:32 CGR [id number]) Occupational Therapy Current Condition Current Condition Evaluation Date 10/16/19 Treatment Diagnosis L2-4 XLIF, bone graft, and lami Diagnosis Onset Date 10/15/19 Post Operative Precautions Lumbar Precautions Log Roll,No Twisting,Limit Bending,Lifting Restriction of 10 lbs,Gait Belt above Incisional Area M3 OT- IP Subjective and Pain Start: 10/16/19 13:12 Freq: Status: Active Protocol: Document 10/17/19 15:45 CGR (Rec: 10/17/19 15:46 CGR [id number]) OT- Subjective Occupational Therapy Visit Type Type Administrative Note Notes Attempted to see for OT services. Pt declined any activity at this point and requests shower in the AM. Will continue to follow.
[2019-10-17] MEDS: GABAPENTIN 300 MG CAPSULE PO (20:24)
[2019-10-17] MEDS: hydrOXYzine pamoate 25 MG CAPSULE PO (20:24)
[2019-10-17] MEDS: ATORVASTATIN 20 MG TABLET PO (20:24)
[2019-10-17] MEDS: SENNOSIDES 8.6 MG TABLET 17.2 MG PO (20:25)
[2019-10-17] MEDS: NORTRIPTYLINE HCL 25 MG CAPSULE 100 MG PO (20:51)
[2019-10-17] MEDS: VENLAFAXINE ER 75 MG CAP 150 MG PO (20:52)
--- NOTE | 2019-10-17 22:58 | PC.NURSE ---
Pt intake for this shift approx 1350 and output approx 2900.
[2019-10-18] MEDS: hydrOXYzine pamoate 25 MG CAPSULE PO (00:50)
[2019-10-18] MEDS: OXYCODONE IR 10 MG TABLET PO ×4 (00:50→23:37)
[2019-10-18 04:10] VITALS: BP 115/66; PULSE 83; RESP 16; TEMP 36.8; O2SAT 92
[2019-10-18 06:11] LABS: Blood Urea Nitrogen 12 mg/dL (7-17); Calcium 8.4 mg/dL (8.4-10.2); Carbon Dioxide 28 mmol/L (22-32); Chloride 105 mmol/L (98-107); Estimated Glomerular Filt Rate > 60.0 mL/min (>60); Glucose 106 mg/dL (80-110); HEMOLYSIS < 15 (0-50); Sodium 138 mmol/L (137-145)
--- NOTE | 2019-10-18 07:41 | PC.NURSE ---
Addendum entered by Haroldo Moore R.N. 10/18/19 14:53: Pt has progressed well through the shift. offers no overt c/o pain. Feels much better than this morning. Flores d/c'd per orders earlier in the day. Spoke with Dr. Kelsey. No new orders. Dr. Kelsey aware of I&O's. Addendum entered by Haroldo Moore R.N. 10/18/19 07:50: Ortho Doc aware of I&O's. RN to discuss I&O for overnight with Ortho on rounds. Original Note: Pt wakes easily, A&O. Offers no overt complaint. Discussed plan for the day. Dressing CDI. Moves self in bed.
--- NOTE | 2019-10-18 08:07 | PM.PNPO.1 ---
Subjective Subjective Date Patient Seen: 10/18/19 Time Patient Seen: 08:07 Interval history: Feeling more pain in left thigh when lifting it. A little dry mouth feeling today. No dizziness. Exam Vital Signs (past 8 hours): - 10/18/19 04:10 Temperature 98.3 F Pulse Rate 83 Respiratory Rate 16 Blood Pressure 115/66 Pulse Oximetry 92 Oxygen Delivery Method Room Air Oxygen Flow Rate 0 Const Orientation: alert and oriented x3 Other: UOP 7400 yesterday, only 1100 this AM Back/Spine/Pelvis Other: cdi. 5/5 motor BLE except 5-/5 L hip flexor. Objective Labs Result Diagrams: 10/17/19 05:38 10/18/19 05:51 Labs: Laboratory Results - last 24 hr 10/18/19 05:51 Sodium 138 Potassium 4.0 Chloride 105 Carbon Dioxide 28 BUN 12 Creatinine 0.60 Estimated GFR > 60.0 BUN/Creatinine Ratio 20.0 Glucose 106 Calcium 8.4 Assessment & Plan Post-op Postoperative Procedures: Procedures Operation Date: 10/15/19 07:45 Actual Procedures Side Surgeon p L23, L34 anterior & posterior (XLIF) instrumentated fusion w/ bone graft & laminectomies, removal old L4-S1 screws Edmund Kelsey MD Her UOP is slowing down. Does feel some drymouth but not hypotensive or dizzy. Sodium levels normal, doubt SIADH. I will give her a dose of steroids for the leg pain, most likely coming from the lateral psoas splitting approach. If her pain is under better control and her UOP continues to normalize, then plan to DC today. If UOP does not improve, will have medicine see her. Quality VTE Deep Vein Thrombosis/Pulmonary Embolism Present on Admission: No
[2019-10-18 08:20] VITALS: BP 103/58; PULSE 80; RESP 16; TEMP 36.1; O2SAT 90
[2019-10-18] MEDS: CELECOXIB 200 MG CAPSULE PO ×2 (09:18→20:58)
[2019-10-18] MEDS: LEVOTHYROXINE 150 MCG TABLET PO (09:18)
[2019-10-18] MEDS: DOCUSATE 100 MG CAPSULE PO ×2 (09:18→20:58)
[2019-10-18] MEDS: DEXAMETHASONE 10 MG/ML VIAL IV (09:18)
[2019-10-18] MEDS: VENLAFAXINE ER 75 MG CAP PO (09:19)
--- NOTE | 2019-10-18 10:08 | PT.IPTN ---
Current Diagnoses Spondylolisthesis, lumbar region (10/15/19) Spinal stenosis, lumbar region with neurogenic claudication (10/15/19) Arthrodesis status (10/15/19) Surgery Performed Operation Date: 10/15/19 07:45 Actual Procedures p L23, L34 anterior & posterior (XLIF) instrumentated fusion w/ bone graft & laminectomies, removal old L4-S1 screws - Edmund Kelsey MD Physical Therapy Treatment Note M2 PT-IP Current Condition Start: 10/16/19 12:42 Freq: NEEDED Status: Active Protocol: Document 10/16/19 10:22 AB (Rec: 10/16/19 12:58 AB [id number]) Physical Therapy Current Condition Current Condition Evaluation Date 10/16/19 Treatment Diagnosis L2-4 ant./post fusion/lami; difficulty in walking Onset Date 10/15/2019 Precautions Lumbar Precautions Log Roll,No Twisting,Limit Bending,Lifting Restriction of 10 lbs,Gait Belt above Incisional Area M3 PT-IP Subjective Start: 10/16/19 12:42 Freq: NEEDED Status: Active Protocol: Document 10/18/19 10:08 CLB (Rec: 10/18/19 12:23 CLB [id number]) Subjective Physical Therapy Visit Type Type Treatment Note Visit Start Time 10:08 Visit Stop Time 10:26 Total Visit Minutes 18 Notes present for tx. Number of WAFER CUTTER Visits 3 Physical Therapy Visit Comments Patient Comments pt agreeable to do PT Therapy Pain Assessment Pain When Pain Assessed During Mobility Pain Present Pain Present Pain Reported Location Bilateral Back Intensity 6 Scale Used Numeric (1 - 10) Pain Management Techniques Apply Cold,Re-positioning, Timing of Activity with Medications M4 PT-IP Mobility and Gait Start: 10/16/19 12:42 Freq: NEEDED Status: Active Protocol: Document 10/18/19 10:08 CLB (Rec: 10/18/19 12:23 CLB [id number]) PT-Bed Mobility Assessment Rolling Type of Rolling Log Rolling,Roll to Left Level of Assist Standby Assistance Sit to Supine Sit to Supine Standby Assistance Scooting Scooting Up and Down in Bed Standby Assistance PT-Transfer Assessment Sit to and From Stand Sit to and from Stand Standby Assistance,Use of Upper Extremities Equipment Transfer Assistive Device Gait Belt,Front Wheeled Walker Transfers Transfer Destination Bed,Chair Transfer Technique ambulation using FWW Transfer Ability Level of Assist Standby Assistance,Use of Upper Extremities Comments Mobility Comments Pt is SBA for log roll, sit- supine and sit<>stand. Gait Assessment Gait Gait Assistance Required: Standby Assistance Distance (Feet) 220 Able to Maintain Weight Bearing Status Yes During Gait Assistive Devices Assistive Device Gait Belt,Front Wheeled Walker Orthotic/Prosthetic Devices or Brace: No Gait Deviations General Gait Pattern Antalgic,Decreased Stride Length,Decreased Feet Clearance Factors Limiting Gait Function Factors Limiting Gait Function Decreased Activity Tolerance, Decreased Strength,Limited Range of Motion,Pain,Poor Balance Comments Gait Comments Pt ambulated ~220ft SBA with cues for avoid obstacles in clemente. Pt ambulates slowly with decreased step length and foot clearance. Stair Climbing Assessment Evaluation Level of Assist On Stairs Contact Guard Assistance,1 Person Assistance Devices Stair Climbing Assistive Devices Left Railing,Right Railing Technique/Endurance Stair Climbing Direction Ascend and Descend Stair Climbing Technique Step to Step Number of Steps Climbed 3 Stair Climbing Set # Repetitions (reps) 2 Comments Stair Climbing Comments Pt CGA during stair climbing. Pt did not have c/o increased pain with stair climbing. M5 PT-IP Objective Assessments Start: 10/16/19 12:42 Freq: NEEDED Status: Active Protocol: Document 10/16/19 10:22 AB (Rec: 10/16/19 12:58 AB [id number]) Orientation Orientation/Cognition Level of Alertness Alert Orientation Name,Age,Place,Situation Language Function Ability No Deficits Noted Safety Awareness Understands Safety Issues Gross Range of Motion Lower Extremity ROM Assessment Within Functional Limits Strength Comments Strength Comments LLE: 4-/5 RLE: 3+/5 Coordination Assessment Gross Coordination Gross Coordination WNL Sensation Assessment Sensation Gross Sensation Right LE Impaired Light Touch Impaired Sensation Description Numbness,Tingling Comments Sensation Comments c/o R inner thigh to big toes numbness/tingling and decrease sensation Muscle Tone Muscle Tone WNL Yes M6 PT-IP Treatment Start: 10/16/19 12:42 Freq: NEEDED Status: Active Protocol: Document 10/17/19 09:51 LJ (Rec: 10/17/19 10:30 LJ [id number]) Physical Therapy Treatment Education Education Provided Precautions,Weight Bearing Status,Safety Other Treatments Other Treatment Performed educated pt on use of glute and core muscles to assist with mobility M7 PT-IP Assessment and Plan Start: 10/16/19 12:42 Freq: NEEDED Status: Active Protocol: Document 10/18/19 10:08 CLB (Rec: 10/18/19 12:23 CLB [id number]) PT Summary Assessment and Plan Summary Impairments Pain,ROM,Strength,Balance, Coordination,Sensation,Bed Mobility,Transfers,Gait, Activity Tolerance Progress Towards Goals Progressing Toward Goals Assessment Summary Pt increased gait distance and was able to climb stairs with CGA. Pt is SBA for bed mobility and sit<>stand. Left pt in bed with RN present to remove catheter. Goals Bed Mobility Goal Independent Transfer Goal Independent,Front Wheeled Walker Gait Goal Independent,Front Wheel Walker Gait Distance 150 Other Goals up/down 3 steps using bilateral rails SBA MET Frequency of Treatment Frequency Of Treatment Twice a Day Treatment Plan Physical Therapy Treatment Plan Bed Mobility Training,Transfer Training,Gait Training, Therapeutic Exercise,Balance Retraining,Post Op Education, Discharge Planning,Hot or Cold Pack,Neuromuscular Re-ed, Coordination Retraining,Manual Therapy Recommendations To Nursing Amount of Assist Needed 1 Person Assist Discharge Recommendations PT Discharge Recommendations Home with Assistance
--- NOTE | 2019-10-18 12:47 | CM.DPC ---
DCP: continued: Case received and discussed in Team Rounds. EMR reviewed. Dr. Kelsey has been following each day and he today has added a steroid to help with pt's increased pain in L thigh area. He also is following the urine output and states he will put in a medicine consult if this does not continue to normalize. Checked in with pt and her now. Pt confirms that she did well with PT today and that it is unclear to her if Dr. Kelsey will send her home later today or is she will need to stay overnight due to concerns re the intake/output imbalance. She says she is comfortable with whatever Dr. Kelsey thinks is the best timeline for d/c. The barr catheter has now been removed and RN Haroldo confirms nursing is monitoring his closely. FWW: discussed. Pt's spouse was able to pick one up and thus no order will be needed for this recommended DME. PT dept is updated. The walker is in the room and ASSEMBLER TESTER Noy has already checked if for size and deemed it approrpriate for pt. P: home when stable for same: will be either later tonight or tomorrow.
[2019-10-18 13:15] VITALS: BP 119/69; PULSE 91; RESP 16; TEMP 36.4; O2SAT 94
--- NOTE | 2019-10-18 14:06 | PT.IPTN ---
Current Diagnoses Spondylolisthesis, lumbar region (10/15/19) Spinal stenosis, lumbar region with neurogenic claudication (10/15/19) Arthrodesis status (10/15/19) Surgery Performed Operation Date: 10/15/19 07:45 Actual Procedures p L23, L34 anterior & posterior (XLIF) instrumentated fusion w/ bone graft & laminectomies, removal old L4-S1 screws - Edmund Kelsey MD Physical Therapy Treatment Note M2 PT-IP Current Condition Start: 10/16/19 12:42 Freq: NEEDED Status: Active Protocol: Document 10/16/19 10:22 AB (Rec: 10/16/19 12:58 AB [id number]) Physical Therapy Current Condition Current Condition Evaluation Date 10/16/19 Treatment Diagnosis L2-4 ant./post fusion/lami; difficulty in walking Onset Date 10/15/2019 Precautions Lumbar Precautions Log Roll,No Twisting,Limit Bending,Lifting Restriction of 10 lbs,Gait Belt above Incisional Area M3 PT-IP Subjective Start: 10/16/19 12:42 Freq: NEEDED Status: Active Protocol: Document 10/18/19 14:06 CLB (Rec: 10/18/19 14:41 CLB [id number]) Subjective Physical Therapy Visit Type Type Treatment Note Visit Start Time 14:06 Visit Stop Time 14:27 Total Visit Minutes 21 Number of CASTING CHIPPER Visits 4 Physical Therapy Visit Comments Patient Comments pt agreeable to do PT Therapy Pain Assessment Pain When Pain Assessed During Mobility Pain Present Pain Present Pain Reported Location Bilateral Back Intensity 6 Scale Used Numeric (1 - 10) Pain Management Techniques Apply Cold,Re-positioning, Timing of Activity with Medications M4 PT-IP Mobility and Gait Start: 10/16/19 12:42 Freq: NEEDED Status: Active Protocol: Document 10/18/19 14:06 CLB (Rec: 10/18/19 14:41 CLB [id number]) PT-Bed Mobility Assessment Rolling Type of Rolling Log Rolling,Roll to Right,Roll to Left Level of Assist Standby Assistance Supine to Sit Supine to Sit Standby Assistance,Head of Bed Elevated Sit to Supine Sit to Supine Standby Assistance Scooting Scooting to Edge of Bed Standby Assistance Scooting Up and Down in Bed Standby Assistance PT-Transfer Assessment Sit to and From Stand Sit to and from Stand Standby Assistance,Use of Upper Extremities Equipment Transfer Assistive Device Gait Belt,Front Wheeled Walker Transfers Transfer Destination Bed,Toilet Transfer Technique ambulation using FWW Transfer Ability Level of Assist Standby Assistance,Use of Upper Extremities Comments Mobility Comments Pt requires SBA for all mobility and requires cues to prevent twisting during pericare. Pt left in bed with call light and all needs within reach, bed alarm on, Bilateral SCD's and present. Informed RN pt output of 600 ml. Gait Assessment Gait Gait Assistance Required: Standby Assistance Distance (Feet) 400 Able to Maintain Weight Bearing Status Yes During Gait Assistive Devices Assistive Device Gait Belt,Front Wheeled Walker Orthotic/Prosthetic Devices or Brace: No Gait Deviations General Gait Pattern Antalgic,Decreased Stride Length,Decreased Feet Clearance Factors Limiting Gait Function Factors Limiting Gait Function Decreased Activity Tolerance, Decreased Strength,Limited Range of Motion,Pain Comments Gait Comments Pt improved with gait speed and quality. Pt was able to increase stride length and foot clearance. M5 PT-IP Objective Assessments Start: 10/16/19 12:42 Freq: NEEDED Status: Active Protocol: Document 10/16/19 10:22 AB (Rec: 10/16/19 12:58 AB [id number]) Orientation Orientation/Cognition Level of Alertness Alert Orientation Name,Age,Place,Situation Language Function Ability No Deficits Noted Safety Awareness Understands Safety Issues Gross Range of Motion Lower Extremity ROM Assessment Within Functional Limits Strength Comments Strength Comments LLE: 4-/5 RLE: 3+/5 Coordination Assessment Gross Coordination Gross Coordination WNL Sensation Assessment Sensation Gross Sensation Right LE Impaired Light Touch Impaired Sensation Description Numbness,Tingling Comments Sensation Comments c/o R inner thigh to big toes numbness/tingling and decrease sensation Muscle Tone Muscle Tone WNL Yes M6 PT-IP Treatment Start: 10/16/19 12:42 Freq: NEEDED Status: Active Protocol: Document 10/17/19 09:51 LJ (Rec: 10/17/19 10:30 LJ [id number]) Physical Therapy Treatment Education Education Provided Precautions,Weight Bearing Status,Safety Other Treatments Other Treatment Performed educated pt on use of glute and core muscles to assist with mobility M7 PT-IP Assessment and Plan Start: 10/16/19 12:42 Freq: NEEDED Status: Active Protocol: Document 10/18/19 14:06 CLB (Rec: 01/12/20 14:41 CLB [id number]) PT Summary Assessment and Plan Summary Impairments Pain,ROM,Strength,Balance, Coordination,Sensation,Bed Mobility,Transfers,Gait, Activity Tolerance Progress Towards Goals Progressing Toward Goals Assessment Summary Pt continues to improve with all mobility with increased gait distance and quality. ( see mobility) Goals Bed Mobility Goal Independent Transfer Goal Independent,Front Wheeled Walker Gait Goal Independent,Front Wheel Walker Gait Distance 150 Other Goals up/down 3 steps using bilateral rails SBA MET Frequency of Treatment Frequency Of Treatment Twice a Day Treatment Plan Physical Therapy Treatment Plan Bed Mobility Training,Transfer Training,Gait Training, Therapeutic Exercise,Balance Retraining,Post Op Education, Discharge Planning,Hot or Cold Pack,Neuromuscular Re-ed, Coordination Retraining,Manual Therapy Recommendations To Nursing Amount of Assist Needed 1 Person Assist Discharge Recommendations PT Discharge Recommendations Home with Assistance
[2019-10-18 15:36] VITALS: BP 117/64; PULSE 84; RESP 18; TEMP 35.7; O2SAT 92
[2019-10-18 19:42] VITALS: BP 120/66; PULSE 82; RESP 16; TEMP 36.4; O2SAT 93
[2019-10-18] MEDS: NORTRIPTYLINE HCL 25 MG CAPSULE 100 MG PO (20:54)
[2019-10-18] MEDS: SENNOSIDES 8.6 MG TABLET 17.2 MG PO (20:55)
[2019-10-18] MEDS: VENLAFAXINE ER 75 MG CAP 150 MG PO (20:55)
[2019-10-18] MEDS: GABAPENTIN 300 MG CAPSULE PO (20:57)
[2019-10-18] MEDS: ATORVASTATIN 20 MG TABLET PO (20:57)
[2019-10-19] VITALS: BP 129/71; PULSE 80; RESP 16; TEMP 36.7; O2SAT 94
[2019-10-19 05:00] VITALS: BP 134/70; PULSE 70; RESP 17; TEMP 36.8; O2SAT 93
--- NOTE | 2019-10-19 07:37 | PM.PNPO.1 ---
Subjective Subjective Date Patient Seen: 10/19/19 Interval history: She is doing much better today. Feels strong and independent with mobility Exam Vital Signs (past 8 hours): - 10/19/19 00:00 10/19/19 05:00 Temperature 98.0 F 98.2 F Pulse Rate 80 70 Respiratory Rate 16 17 Blood Pressure 129/71 134/70 Pulse Oximetry 94 93 Oxygen Delivery Method Room Air Oxygen Flow Rate 0 Const Orientation: alert and oriented x3 Other: Urine output yesterday 1400 mL Back/Spine/Pelvis Other: Minimal drainage. 5/5 motor both lower extremities except for minimal 5/-5 left hip flexor Objective Labs Result Diagrams: 10/17/19 05:38 10/18/19 05:51 Assessment & Plan Post-op Postoperative Procedures: Procedures Operation Date: 10/15/19 07:45 Actual Procedures Side Surgeon p L23, L34 anterior & posterior (XLIF) instrumentated fusion w/ bone graft & laminectomies, removal old L4-S1 screws Edmund Kelsey MD She is doing much better. We've caught up on fluids and her urine output has slowed down. She is only -200 mL for the whole hospitalization at this point. Discharge home today. Quality VTE Deep Vein Thrombosis/Pulmonary Embolism Present on Admission: No
--- NOTE | 2019-10-19 07:38 | PM.DS.1 ---
History of Present Illness History of Present Illness Date Patient Seen: 10/19/19 Time Patient Seen: 07:38 Chief complaint: L2-3 L3-4 L4-S1 Narrative: 68-year-old female with back and leg pain. 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 Labor and industries had finally denied further surgery and she elected proceed with further surgery with her private insurance. Pain is in the back and primarily going down the left leg. She has been through physical therapy and multiple epidural injections. Discharge Providers Provider Date of admission: 10/15/19 06:01 Discharge Date: 10/19/19 Primary care physician: Amanda Dent PA-C Consults: 10/15/19 15:30 Consult to Occupational Therapy Evaluate & Treat Comment: Physician Instructions: Evaluate and treat Consult to Physical Therapy Evaluate & Treat Comment: Physician Instructions: Evaluate and Treat Discharge provider: Edmund Kelsey MD Summary Hospital Course Discharge Diagnosis: Lumbar stenosis and spondylolisthesis Hospital Course: He is brought to the operating room on 10/15/19 where she underwent hardware removal from L4 through S1 and an anterior and posterior fusion and laminectomy from L2 through 4. Postoperatively she slowly mobilized with physical therapy. The date of discharge she was able to get out of bed and independently ambulate. She had significant urine output the 1st several days after surgery and was in a very large negative balance. Glucose was normal and sodium was normal, this was felt to be from her normal large amount of water consumption. By postoperative day 3, her urine output began to normalize until she called up to just a -200 mL balance by the date of discharge. Status at Discharge Cognitive/behavioral status at discharge: oriented Functional status at discharge: uses cane/walker Overall status at discharge: patient is progressing back to baseline Exam Vital Signs (past 8 hours): - 10/19/19 00:00 10/19/19 05:00 Temperature 98.0 F 98.2 F Pulse Rate 80 70 Respiratory Rate 16 17 Blood Pressure 129/71 134/70 Pulse Oximetry 94 93 Oxygen Delivery Method Room Air Oxygen Flow Rate 0 Const Orientation: alert and oriented x3 Back/Spine/Pelvis Other: Mild drainage. 5/5 motor both lower extremities except for 5-/5 left hip flexor. Objective Labs Result Diagrams: 10/17/19 05:38 10/18/19 05:51 Discharge Plan Discharge Plan Patient Disposition: Home Discharge comment: Follow-up 1.5 weeks. Discharge orders & Medications Prescriptions: New celecoxib [Celebrex] 200 mg Capsule 200 mg PO BID PRN (Reason: pain) Qty: 60 RF: 0 docusate sodium [DOK] 100 mg Capsule 100 mg PO BID PRN (Reason: constipation) Qty: 30 RF: 0 hydroxyzine pamoate 25 mg Capsule 25 mg PO Q4HR PRN (Reason: spasms) Qty: 20 RF: 0 oxycodone 5 mg Tablet See Rx Instructions .ROUTE .COMPLEX PRN (Reason: Pain, Moderate (4-6)) Qty: 40 RF: 0 Continued venlafaxine [Effexor XR] 75 mg Capsule,Extended Release 24hr 75 mg PO TID RF: 0 atorvastatin 20 mg Tablet 20 mg PO BEDTIME RF: 0 levothyroxine [Synthroid] 150 mcg Tablet 150 mcg PO DAILY RF: 0 nortriptyline 50 mg Capsule 100 mg PO BEDTIME RF: 0 Discontinued ibuprofen 800 mg Tablet 800 mg PO BID-TID RF: 0 Follow up/Referrals: Amanda Higginbotham PA-C [Primary Care Provider] - Discharge Health Status Multidrug resistant organism: No MDRO Diet/Activity/Treatments Diet: Diet as Tolerated Activity: Limited BLT. 10 lb max lift Skin/Wound/Dressing Care Report to your healthcare provider any signs of infection, such as:: chills, fever, night sweats, increased pain, unusual drainage and unusual redness Dressing: Keep dressing intact. Okay to shower with waterproof dressing Visit Report/Discharge Packet Instructions: DI for Laminectomy, DI for Prescription Opioid Use, DI for Lateral Lumbar Interbody Fusion Stand Alone Forms: Surgery Discharge Discharge Data Primary Care Provider: Amanda Higginbotham Quality VTE Deep Vein Thrombosis/Pulmonary Embolism Present on Admission: No
[2019-10-19] MEDS: OXYCODONE IR 10 MG TABLET PO (07:55)
[2019-10-19 07:56] VITALS: BP 136/79; PULSE 85; RESP 17; TEMP 36.4; O2SAT 92
[2019-10-19] MEDS: VENLAFAXINE ER 75 MG CAP PO (08:20)
[2019-10-19] MEDS: DOCUSATE 100 MG CAPSULE PO (08:21)
[2019-10-19] MEDS: ACETAMINOPHEN 325 MG TABLET 650 MG PO (08:21)
[2019-10-19] MEDS: CELECOXIB 200 MG CAPSULE PO (08:21)
[2019-10-19] MEDS: LEVOTHYROXINE 150 MCG TABLET PO (08:21)
--- NOTE | 2019-10-19 09:20 | OT.IP.TRT ---
Current Diagnoses Spondylolisthesis, lumbar region (10/15/19) Spinal stenosis, lumbar region with neurogenic claudication (10/15/19) Arthrodesis status (10/15/19) Surgery Performed Operation Date: 10/15/19 07:45 Actual Procedures p L23, L34 anterior & posterior (XLIF) instrumentated fusion w/ bone graft & laminectomies, removal old L4-S1 screws - Edmund Kelsey MD Occupational Therapy Treatment Note M2 OT-IP Current Condition Start: 10/16/19 13:12 Freq: Status: Active Protocol: Document 10/16/19 13:13 CGR (Rec: 10/16/19 13:32 CGR [id number]) Occupational Therapy Current Condition Current Condition Evaluation Date 10/16/19 Treatment Diagnosis L2-4 XLIF, bone graft, and lami Diagnosis Onset Date 10/15/19 Post Operative Precautions Lumbar Precautions Log Roll,No Twisting,Limit Bending,Lifting Restriction of 10 lbs,Gait Belt above Incisional Area M3 OT- IP Subjective and Pain Start: 10/16/19 13:12 Freq: Status: Active Protocol: Document 10/19/19 09:52 [facility] (Rec: 10/19/19 10:01 [facility] [id number]) OT- Subjective Occupational Therapy Visit Type Type Treatment Note Visit Start Time 09:13 Visit Stop Time 09:32 Total Visit Minutes 19 Occupational Therapy Visit Comments Patient Comments Pt cooperative and states already showered earlier. Patient/Caregiver Goals To go home. OT Pain Assessment Pain When Pain Assessed At Rest Pain Present Pain Present Denied Pain M4 OT- IP ADL's Start: 10/16/19 13:12 Freq: Status: Active Protocol: Document 10/19/19 09:52 [facility] (Rec: 10/19/19 10:01 [facility] [id number]) OT [id number] Comments OT Self-Feeding Comments Not meal time OT ADL-Dressing General Eval Lower Body Dressing Ability Minimal Assistance Areas Needing Assistance Shoes Comments OT Dressing Comments Pt able to comfortable cross her legs over to pablo socks, underwear and pants. Pt needing assist to pablo boots CHRYSTAL to get over her heels. Educated to place clothing on her FWW so not having to twist to get to her clothing. M5 OT- IP IADL's Start: 10/16/19 13:12 Freq: Status: Active Protocol: Document 10/16/19 13:13 CGR (Rec: 10/16/19 13:32 CGR [id number]) OT-Instrumental Activities of Daily Living Deficits IADL Deficits Identified No Deficits Home Safety Awareness Awareness of Need for Assistance at Home Good Awareness Ability to Problem Solve Emergency Able to Problem Solve Situations Medication Management Medication Management No Deficits Identified Money Management Money Management No Deficits Identified Meal Preparation Meal Preparation No Deficits Identified Model Set Artist Model Set Artist No Deficits Identified M6 OT- IP Functional Cognition Start: 10/16/19 13:12 Freq: Status: Active Protocol: Document 10/19/19 09:52 [facility] (Rec: 10/19/19 10:01 [facility] [id number]) Cognitive Factors Limiting Selfcare Function Cognitive Ability Safety Awareness Decreased Ability to Apply Precautions Cognitive Comments Cognitive Assessment Comments Pt at times tends to twist while doing ADL and functional mobility needs and needs reminders to think about her precautions before moving. Had signs printed out to help remind pt at home of her precautions. M7 OT- IP Mobility and Balance Start: 10/16/19 13:12 Freq: Status: Active Protocol: Document 10/19/19 09:52 [facility] (Rec: 10/19/19 10:01 [facility] [id number]) OT-Transfer Assessment Sit to and From Stand Sit to and from Stand Standby Assistance Transfers Transfer Ability Standby Assistance Technique Transfer Destination Chair Transfer Technique Stand Step Pivot Devices Transfer Assistive Devices Gait Belt,Front Wheeled Walker OT- Balance Assessment Sitting Balance and Reactions Static Sitting Balance Ability Normal Dynamic Sitting Balance Ability Good Standing Balance and Reactions Static Standing Balance Ability Good M8 OT- IP Objective Assessments Start: 10/16/19 13:12 Freq: Status: Active Protocol: Document 10/16/19 13:13 CGR (Rec: 10/16/19 13:32 CGR [id number]) OT Gross Range of Motion Upper Extremity Range of Motion Assessment Within Functional Limits OT Strength Upper Extremity Strength Assessment Within Functional Limits OT- Coordination Assessment Upper Extremity Finger to Nose Test Within Functional Limits Finger Tapping Test Within Functional Limits OT-Muscle Tone Assessment Muscle Tone WNL Yes OT Sensation Assessment Edema Edema Absent M9 OT- IP Assessment and Plan Start: 10/16/19 13:12 Freq: Status: Active Protocol: Document 10/19/19 09:52 [facility] (Rec: 10/19/19 10:01 [facility] [id number]) OT Summary Assessment and Plan Potential Rehabilitation Potential Excellent Analytic Complexity at Evaluation Low Summary Progress Towards Goals Progressing Toward Goals Assessment Summary Pt doing well and mainly just needing reminders to incorporate back precautions during needs as tends to twist too much to try to reach for items. Pt to have assist at home. Goals Days to Meet Goals 1 Frequency of Treatment Frequency Of Treatment Once a Day Treatment Plan OT Treatment Plan ADL Training,Functional Mobility,Patient/Family Education,Discharge Planning Discharge Recommendations OT Discharge Recommendations Home
[2019-10-19] MEDS: MAGNESIUM HYDROXIDE 30 ML UDC PO (09:35)
--- NOTE | 2019-10-19 09:36 | PT.IPTN ---
Current Diagnoses Spondylolisthesis, lumbar region (10/15/19) Spinal stenosis, lumbar region with neurogenic claudication (10/15/19) Arthrodesis status (10/15/19) Surgery Performed Operation Date: 10/15/19 07:45 Actual Procedures p L23, L34 anterior & posterior (XLIF) instrumentated fusion w/ bone graft & laminectomies, removal old L4-S1 screws - Edmund Kelsey MD Physical Therapy Treatment Note M2 PT-IP Current Condition Start: 10/16/19 12:42 Freq: NEEDED Status: Active Protocol: Document 10/16/19 10:22 AB (Rec: 10/16/19 12:58 AB [id number]) Physical Therapy Current Condition Current Condition Evaluation Date 10/16/19 Treatment Diagnosis L2-4 ant./post fusion/lami; difficulty in walking Onset Date 10/15/2019 Precautions Lumbar Precautions Log Roll,No Twisting,Limit Bending,Lifting Restriction of 10 lbs,Gait Belt above Incisional Area M3 PT-IP Subjective Start: 10/16/19 12:42 Freq: NEEDED Status: Active Protocol: Document 10/19/19 09:00 [facility] (Rec: 10/19/19 09:36 LJ [id number]) Subjective Physical Therapy Visit Type Type Treatment Note Visit Start Time 09:00 Visit Stop Time 09:24 Total Visit Minutes 24 Notes Pt standing at letty brushing teeth Physical Therapy Visit Comments Patient Comments pt agreeable to do PT Therapy Pain Assessment Pain When Pain Assessed During Mobility Pain Present Pain Present Pain Reported M4 PT-IP Mobility and Gait Start: 10/16/19 12:42 Freq: NEEDED Status: Active Protocol: Document 10/19/19 09:00 [facility] (Rec: 10/19/19 09:36 [id number]) PT-Transfer Assessment Sit to and From Stand Sit to and from Stand Independent,Standby Assistance ,Use of Upper Extremities Equipment Transfer Assistive Device None,Gait Belt Transfers Transfer Destination Chair Transfer Technique ambulation using FWW Transfer Ability Level of Assist Independent,Standby Assistance ,Use of Upper Extremities Comments Mobility Comments Pt moving independently in room when PT and OT entered room. SBA to ind for mobility but requires reienforcement with precautions Gait Assessment Gait Gait Assistance Required: Independent,Standby Assistance Distance (Feet) 400 Able to Maintain Weight Bearing Status Yes During Gait Assistive Devices Assistive Device None,Gait Belt,Front Wheeled Walker Gait Deviations General Gait Pattern Decreased Stride Length, Decreased Feet Clearance Factors Limiting Gait Function Factors Limiting Gait Function Decreased Activity Tolerance, Decreased Strength,Limited Range of Motion,Pain Comments Gait Comments Pt able to ambulate w/o AD but feels more secure using FWW. Practised ambulating around obstacles in nursing station and turning corners in hallwya M5 PT-IP Objective Assessments Start: 10/16/19 12:42 Freq: NEEDED Status: Active Protocol: Document 10/16/19 10:22 AB (Rec: 10/16/19 12:58 AB [id number]) Orientation Orientation/Cognition Level of Alertness Alert Orientation Name,Age,Place,Situation Language Function Ability No Deficits Noted Safety Awareness Understands Safety Issues Gross Range of Motion Lower Extremity ROM Assessment Within Functional Limits Strength Comments Strength Comments LLE: 4-/5 RLE: 3+/5 Coordination Assessment Gross Coordination Gross Coordination WNL Sensation Assessment Sensation Gross Sensation Right LE Impaired Light Touch Impaired Sensation Description Numbness,Tingling Comments Sensation Comments c/o R inner thigh to big toes numbness/tingling and decrease sensation Muscle Tone Muscle Tone WNL Yes M6 PT-IP Treatment Start: 10/16/19 12:42 Freq: NEEDED Status: Active Protocol: Document 10/19/19 09:00 [facility] (Rec: 10/19/19 09:36 [id number]) Physical Therapy Treatment Education Education Provided Precautions,Post-Op Packet, Safety Other Treatments Other Treatment Performed Extensively reviewed safety precautions and trialed several situations in room where pt can set up her home invironment to assist her in maintaining those precautions M7 PT-IP Assessment and Plan Start: 10/16/19 12:42 Freq: NEEDED Status: Active Protocol: Document 10/19/19 09:00 [facility] (Rec: 10/19/19 09:36 [id number]) PT Summary Assessment and Plan Potential Rehabilitation Potential Good Summary Impairments Pain,ROM,Strength,Balance, Coordination,Sensation,Bed Mobility,Transfers,Gait, Activity Tolerance Assessment Summary Pt is aware of precautions and prefers to use FWW for the time being because she is afraid of falling. She ambulated in hallway around obstacles and around corners and did not break precautions. Goals Bed Mobility Goal Independent Transfer Goal Independent,Front Wheeled Walker Gait Goal Independent,Front Wheel Walker Gait Distance 150 Other Goals up/down 3 steps using bilateral rails SBA MET Frequency of Treatment Frequency Of Treatment Twice a Day Treatment Plan Physical Therapy Treatment Plan Bed Mobility Training,Transfer Training,Gait Training, Therapeutic Exercise,Balance Retraining,Post Op Education, Discharge Planning,Hot or Cold Pack,Neuromuscular Re-ed, Coordination Retraining,Manual Therapy Recommendations To Nursing Amount of Assist Needed 1 Person Assist Discharge Recommendations PT Discharge Recommendations Home with Assistance
--- NOTE | 2019-10-19 10:51 | PC.NURSE ---
Day shift: Pt left unit in WC w/ [employer] [place]ianne to private car driven by Pt's spouse. Paperwork signed and all questions answered. Pt said she would make MD appointment today with her PCP for her increased urine output post-op. Pt has all personal belongings as well as MD scrips. New dressings placed today and Pt and spouse instructed on changing if needed.
== END 2019-10-19 10:54 | disposition home or self-care (01) | DRG 455 ==
PROVIDERS: Orthopaedic Surgery Adult Reconstructive Orthopaedic Surgery; Admitting Provider Orthopaedic Surgery; Visit Provider Orthopaedic Surgery
PROC: 0SG00A0 Fusion of Lumbar Vertebral Joint with Interbody Fusion Device, Anterior Approach, Anterior Column, Open Approach (ICD-10-PCS; CPT 22558; principal; 2019-10-15 07:45)
DX: M48.062 Spinal stenosis, lumbar region with neurogenic claudication (principal); F41.9 Anxiety disorder, unspecified; E03.9 Hypothyroidism, unspecified; R35.8 Other polyuria; M43.16 Spondylolisthesis, lumbar region; Z98.1 Arthrodesis status
CPT/HCPCS: 36415; 72100; 76000; 80048; 82962; 83036; 85014; 85018; 85025; 97116; 97161; 97165; 97530; 97535; C1776; J0330; J0595; J0690; J1100; J1170; J2274; J2405; J2704; J3010